=== PATIENT | female | born 2000 | race American Indian/Alaskan Native ===

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

== ENCOUNTER 2020-05-17 11:26 | Emergency (ER) | payer SELFPAY ==
[2020-05-17] MEDS ORDERED: niCARdipine DRIP 0 MG/0 ML BAG ONE (13:30)
--- NOTE | 2020-05-17 13:30 | Event Note ---
ED Screening Note Date of service: 05/17/20 Time: 13:28 ED Screening Note: 20-year-old female presents the ED complaining of lower pelvic pain with dysuria Denies vaginal discharge LMP, April 09, 2020 This initial assessment/diagnostic orders/clinical plan/treatment(s) is/are subject to change based on patients health status, clinical progression and re- assessment by fellow clinical providers in the ED. Further treatment and workup at subsequent clinical providers discretion. Patient/guardian urged not to elope from the ED as their condition may be serious if not clinically assessed and managed. Initial orders include: [email or web address]
[2020-05-17 15:42] LABS: Bacteria,Urine 1+ /HPF (Negative); Bilirubin,Urine NEG (Negative); Blood,Urine NEG (Negative); Color,Urine Yellow (Yellow); Mucus,Urine 3+ /HPF; Protein,Urine <15 mg/dL mg/dL (Negative); Urobilinogen,Urine < 2.0 mg/dL (<2.0)
[2020-05-17 15:44] LABS: HCG Qualitative,Urine Positive (Negative)
--- NOTE | 2020-05-17 16:11 | Emergency Department Report ---
ED General Adult HPI - General Chief complaint: Abdominal Pain Stated complaint: JAMAL AND STOMACH PAIN Time Seen by Provider: 05/17/20 14:27 Source: patient Mode of arrival: Ambulatory Limitations: No Limitations - History of Present Illness Initial comments: 20-year-old -[place] female patient presents with complaints of pelvic pain and right-sided back pain x 1 week. She also reports nausea, diarrhea, and painful urination. She denies any hematuria, vaginal discharge, dyspareunia, or vaginal bleeding. Patient does report that she had a positive test at home recently. She states her last menstrual cycle was 04/09/2020. Patient also denies any fever/chills/sweats or other chronic medical conditions. She reports no previous pregnancies. Patient also states that the right sided back pain is intermittent and denies it being current at this time. -: Gradual - Related Data Previous Rx's Medication Instructions Recorded Last Taken Type Sulfamethoxazole/Trimethoprim 1 each PO BID #6 tablet 12/15/18 Unknown Rx [Bactrim DS TAB] Amoxicillin/Potassium Clav 1 each PO BID 7 Days #14 tablet 05/17/20 Unknown Rx [Augmentin 875-125 Tablet] Allergies Allergy/AdvReac Type Severity Reaction Status Date / Time No Known Allergies Allergy Unverified 10/09/18 15:36 ED Review of Systems ROS: Stated complaint: JAMAL AND STOMACH PAIN Other details as noted in HPI Constitutional: denies: chills, diaphoresis, fever, malaise, weakness ENT: denies: throat pain Respiratory: denies: cough, shortness of breath Cardiovascular: denies: chest pain Endocrine: denies: excessive sweating Gastrointestinal: abdominal pain, nausea, diarrhea. denies: vomiting, constipation, hematemesis, melena, hematochezia Genitourinary: urgency, dysuria. denies: discharge, abnormal menses, dyspareunia Musculoskeletal: back pain Skin: denies: rash Neurological: denies: headache, numbness, paresthesias ED Past Medical Hx - Past Medical History Previous Medical History?: No - Surgical History Past Surgical History?: No - Social History Smoking Status: Current Every Day Smoker Substance Use Type: Alcohol - Medications Home Medications: Home Medications Medication Instructions Recorded Confirmed Last Taken Type Sulfamethoxazole/Trimethoprim 1 each PO BID #6 tablet 12/15/18 Unknown Rx [Bactrim DS TAB] Amoxicillin/Potassium Clav 1 each PO BID 7 Days #14 tablet 05/17/20 Unknown Rx [Augmentin 875-125 Tablet] ED Physical Exam - General Limitations: No Limitations General appearance: alert, in no apparent distress - Head Head exam: Present: atraumatic, normocephalic - Eye Eye exam: Present: normal appearance. Absent: scleral icterus - ENT ENT exam: Present: mucous membranes moist - Neck Neck exam: Present: normal inspection - Respiratory Respiratory exam: Present: normal lung sounds bilaterally. Absent: respiratory distress - Cardiovascular Cardiovascular Exam: Present: regular rate, normal rhythm. Absent: systolic murmur, diastolic murmur, rubs, gallop - GI/Abdominal GI/Abdominal exam: Present: soft, tenderness (Suprapubic), normal bowel sounds. Absent: distended, guarding, rebound, rigid - Extremities Exam Extremities exam: Present: normal inspection - Back Exam Back exam: Present: normal inspection. Absent: CVA tenderness (R), CVA tende rness (L), paraspinal tenderness, vertebral tenderness - Neurological Exam Neurological exam: Present: alert, oriented X3, normal gait - Psychiatric Psychiatric exam: Present: normal affect, normal mood - Skin Skin exam: Present: warm, dry, intact, normal color. Absent: rash ED Course Vital Signs 05/17/20 12:22 Temperature 98.2 F Pulse Rate 65 Respiratory 18 Rate Blood Pressure 124/73 O2 Sat by Pulse 100 Oximetry ED Medical Decision Making - Medical Decision Making Patient here with complaints of lower abdominal pain, dysuria, right flank pain, and nausea and diarrhea. She has suprapubic tenderness to palpation noted without right CVA tenderness noted. UA shows 51 WBCs. She denies any vaginal bleeding or discharge. It was recommended to patient that she had an OB ultrasound performed to rule out ectopic , patient declines and states that she she is unable to wait for her labs and test results. Discussed in detail risk associated with ectopic including , patient verbalized understanding. Prescription for Augmentin given. Patient also given a referral for [employer], Dr. Archuleta. Discussed signs and symptoms of ectopic , worsening UTI/pyelonephritis, and strict return precautions in great detail with patient who verbalized understanding. Her vitals are normal, she is well-appearing and stable for discharge home Critical care attestation.: If time is entered above; I have spent that time in minutes in the direct care of this critically ill patient, excluding procedure time. ED Disposition Clinical Impression: UTI in Qualifiers: Trimester: first trimester Qualified Code(s): O23.41 - Unspecified infection of urinary tract in , first trimester Qualifiers: Weeks of gestation: less than 8 weeks Qualified Code(s): Z3A.01 - Less than 8 weeks gestation of Disposition: - TO HOME OR SELFCARE Is pt being admited?: No Condition: Stable Instructions: Urinary Tract Infection in Women (ED) Prescriptions: Amoxicillin/Potassium Clav [Augmentin 875-125 Tablet] 1 each PO BID 7 Days #14 tablet Referrals: MICHAEL ARCHULETA MD [Staff Physician] - 2-3 Days
[2020-05-17 16:26] VITALS: BP 121/72
== END 2020-05-17 16:26 | disposition home or self-care (01) ==
LOC: ED 11:26
DX: O23.41 Unspecified infection of urinary tract in pregnancy, first trimester (principal); O99.331 Smoking (tobacco) complicating pregnancy, first trimester; Z79.899 Other long term (current) drug therapy; Z3A.01 Less than 8 weeks gestation of pregnancy
CPT/HCPCS: 81001; 81025; 87076; 87086; 87186; 99283

== ENCOUNTER 2020-11-27 11:35 | Emergency (ER) | payer MEDICAID ==
[2020-11-27 11:54] VITALS: BP 139/80
--- NOTE | 2020-11-27 12:21 | Emergency Department Report ---
ED Female HPI - General Chief complaint: Abdominal Pain Stated complaint: ABDOMINAL AND VAGINAL PAIN Time Seen by Provider: 11/27/20 12:11 Source: patient Mode of arrival: Ambulatory Limitations: No Limitations - History of Present Illness Initial comments: 20-year-old -[place] female presents to the emergency room states that she took " take action" Plan B [id number] pill. Patient comes in complaining of vaginal pain and bleeding. Patient states that she is requesting an STD check. She denies any vaginal discharge. Onset/Timin -: days(s) Location: perineum Severity scale (0 -10): 4 Improves with: none Worsens with: none Are you Now?: No Last Menstrual Period: 11/26/20 EDC: 09/02/21 Associated Symptoms: vaginal bleeding. denies: nausea/vomiting, fever/chills, hematuria - Related Data Sexually active: Yes Previous Rx's Medication Instructions Recorded Last Taken Type Sulfamethoxazole/Trimethoprim 1 each PO BID #6 tablet 12/15/18 Unknown Rx [Bactrim DS TAB] Amoxicillin/Potassium Clav 1 each PO BID 7 Days #14 tablet 05/17/20 Unknown Rx [Augmentin 875-125 Tablet] Nitrofurantoin [place]/M-Cryst 100 mg PO Q12HR 10 Days #20 capsule 11/27/20 Unknown Rx [Macrobid CAP] Allergies Allergy/AdvReac Type Severity Reaction Status Date / Time No Known Allergies Allergy Unverified 10/09/18 15:36 ED Review of Systems ROS: Stated complaint: ABDOMINAL AND VAGINAL PAIN Other details as noted in HPI Comment: All other systems reviewed and negative ED Past Medical Hx - Past Medical History Previous Medical History?: No - Surgical History Past Surgical History?: No - Social History Smoking Status: Current Every Day Smoker Substance Use Type: Alcohol - Medications Home Medications: Home Medications Medication Instructions Recorded Confirmed Last Taken Type Sulfamethoxazole/Trimethoprim 1 each PO BID #6 tablet 12/15/18 Unknown Rx [Bactrim DS TAB] Amoxicillin/Potassium Clav 1 each PO BID 7 Days #14 tablet 05/17/20 Unknown Rx [Augmentin 875-125 Tablet] Nitrofurantoin [place]/M-Cryst 100 mg PO Q12HR 10 Days #20 capsule 11/27/20 Unkno wn Rx [Macrobid CAP] ED Physical Exam - General Limitations: No Limitations General appearance: alert, in no apparent distress - Head Head exam: Present: atraumatic, normocephalic - Eye Eye exam: Present: normal appearance - ENT ENT exam: Present: mucous membranes moist - Neck Neck exam: Present: normal inspection - Respiratory Respiratory exam: Present: normal lung sounds bilaterally. Absent: respiratory distress - Cardiovascular Cardiovascular Exam: Present: regular rate, normal rhythm. Absent: systolic murmur, diastolic murmur, rubs, gallop - GI/Abdominal GI/Abdominal exam: Present: soft, normal bowel sounds - Extremities Exam Extremities exam: Present: normal inspection - Back Exam Back exam: Present: normal inspection - Neurological Exam Neurological exam: Present: alert, oriented X3 - Psychiatric Psychiatric exam: Present: normal affect, normal mood - Skin Skin exam: Present: warm, dry, intact, normal color. Absent: rash ED Course Vital Signs 11/27/20 11:53 Temperature 98.4 F Pulse Rate 84 Respiratory 16 Rate Blood Pressure 139/80 [Right] O2 Sat by Pulse 98 Oximetry ED Medical Decision Making - Lab Data Laboratory Tests 11/27/20 12:50 Urine Color Yellow Urine Turbidity Slightly-cloudy Urine pH 6.0 Ur Specific Gregory 1.019 Urine Protein <15 mg/dl Urine Glucose (UA) Neg Urine Ketones Neg Urine Blood Lg Urine Nitrite Pos Urine Bilirubin Neg Urine Urobilinogen < 2.0 Ur Leukocyte Esterase Tr Urine WBC (Auto) 18.0 H Urine RBC (Auto) 122.0 U Epithel Cells (Auto) 4.0 Urine Mucus 1+ Urine HCG, Qual Negative Critical care attestation.: If time is entered above; I have spent that time in minutes in the direct care of this critically ill patient, excluding procedure time. ED Disposition Clinical Impression: UTI (urinary tract infection), Dysmenorrhea Disposition: DC- TO HOME OR SELFCARE Is pt being admited?: No Does the pt Need Aspirin: No Condition: Stable Instructions: Abdominal Pain (ED), Urinary Tract Infection, Adult, [id number], Levonorgestrel emergency contraceptive kit Additional Instructions: Urine test is negative. Urinalysis shows that you have a urinary tract infection. Please complete your antibiotics. Increase your fluid intake. Recommend to follow-up at the health department for full STD panel. I have listed the information below. You can also follow-up with your INSURANCE COUNSEL as well. Prescriptions: Nitrofurantoin [place]/M-Cryst [Macrobid CAP] 100 mg PO Q12HR 10 Days #20 capsule Referrals: PRIMARY CARE, [Primary Care Provider] - 3-5 Days [facility] [Outside] - 3-5 Days Forms: Work/School Release Form(ED)
[2020-11-27 13:05] LABS: Bilirubin,Urine NEG (Negative); Blood,Urine LG (Negative); Color,Urine Yellow (Yellow); Mucus,Urine 1+ /HPF; Protein,Urine <15 mg/dL mg/dL (Negative); Urobilinogen,Urine < 2.0 mg/dL (<2.0)
[2020-11-27 13:06] LABS: HCG Qualitative,Urine Negative (Negative)
== END 2020-11-27 16:39 | disposition home or self-care (01) ==
LOC: ED 11:35
DX: N39.0 Urinary tract infection, site not specified (principal); N94.6 Dysmenorrhea, unspecified; F17.200 Nicotine dependence, unspecified, uncomplicated; Z79.899 Other long term (current) drug therapy
CPT/HCPCS: 81001; 81025; 87086; 99283

== ENCOUNTER 2021-03-02 00:25 | Observation (INO) | payer SELFPAY ==
[2021-03-02 01:02] LABS: Basophils % (Auto) 0.3 % (0.0-1.8); Eosinophils % (Auto) 0.4 % (0.0-4.3); Hematocrit 28.1 % (30.3-42.9); Lymphocytes # (Auto) 1.7 K/mm3 (1.2-5.4); Lymphocytes % (Auto) 19.6 % (13.4-35.0); Mean Corpuscular HGB Conc 32 % (30-34); Monocytes # (Auto) 0.8 K/mm3 (0.0-0.8); Monocytes % (Auto) 9.6 % (0.0-7.3); Platelet Count 340 K/mm3 (140-440); Red Blood Count 4.31 M/mm3 (3.65-5.03)
[2021-03-02 01:11] LABS: Mean Corpuscular Volume 65 fl (79-97); Red Cell Distribution Width 20.5 % (13.2-15.2)
[2021-03-02 01:25] LABS: Alanine Aminotransferase 13 units/L (7-56); Albumin 4.5 g/dL (3.9-5); Blood Urea Nitrogen 13 mg/dL (7-17); Calcium 9.2 mg/dL (8.4-10.2); Hemolysis Index 2
[2021-03-02 01:46] LABS: BUN/Creatinine Ratio 19
[2021-03-02 01:51] LABS: Bacteria,Urine 1+ /HPF (Negative); Bilirubin,Urine NEG (Negative); Blood,Urine SM (Negative); Color,Urine Yellow (Yellow); Mucus,Urine 3+ /HPF
[2021-03-02] MEDS ORDERED: SODIUM CHLORIDE 0.9% 1000 ML 1,000 ML IV ONE (02:24)
[2021-03-02] MEDS ORDERED: ONDANSETRON 4 MG/2 ML INJ IV ONE (02:24)
[2021-03-02] MEDS ORDERED: MORPHINE 4 MG/1 ML INJ IV ONE (02:24)
[2021-03-02] MEDS ORDERED: ACETAMINOPHEN 325 MG TAB PO ONE (02:55)
[2021-03-02] MEDS ORDERED: PIPERACIL/TAZOBACTA 4.5/NS 100 4.5 GM/100 ML VIAL IV ONE (03:44)
[2021-03-02] MEDS ORDERED: ACETAMINOPHEN 325 MG TAB PO PRN ×2 (04:56→04:58)
[2021-03-02] MEDS: ONDANSETRON 4 MG/2 ML INJ IV PRN (08:37)
[2021-03-02] MEDS: D5W/0.9% NACL 1,000 ML IV SCH ×2 (09:46→21:28)
[2021-03-02] MEDS: PIPERACIL/TAZOBACTA 4.5/NS 100 4.5 GM/100 ML VIAL IV SCH ×2 (11:30→21:21)
[2021-03-03] MEDS: PIPERACIL/TAZOBACTA 4.5/NS 100 4.5 GM/100 ML VIAL IV SCH ×4 (04:13→21:37)
[2021-03-03 05:29] LABS: Basophils % (Auto) 0.4 % (0.0-1.8); Eosinophils # (Auto) 0.1 K/mm3 (0.0-0.4); Hematocrit 26.9 % (30.3-42.9); Hemoglobin 8.6 gm/dl (10.1-14.3); Lymphocytes # (Auto) 1.7 K/mm3 (1.2-5.4); Mean Corpuscular HGB Conc 32 % (30-34); Monocytes # (Auto) 0.8 K/mm3 (0.0-0.8); Platelet Count 313 K/mm3 (140-440); Red Blood Count 4.11 M/mm3 (3.65-5.03)
[2021-03-03 05:33] LABS: Mean Corpuscular Volume 65 fl (79-97); Red Cell Distribution Width 21.2 % (13.2-15.2)
[2021-03-03 05:54] LABS: Iron 11 ug/dL (37-170); Total Iron Binding Capacity 379 mcg/dL (250-450)
[2021-03-03] MEDS: FERROUS SULFATE 325 MG TAB PO SCH ×2 (12:00→21:38)
[2021-03-03] MEDS: ONDANSETRON 4 MG/2 ML INJ IV PRN (14:17)
[2021-03-03] MEDS: HYDROmorphone 1 MG/1 ML INJ IV PRN (14:20)
[2021-03-03] MEDS: D5W/0.9% NACL 1,000 ML IV SCH (21:36)
[2021-03-04] MEDS: HYDROmorphone 1 MG/1 ML INJ IV PRN (00:35)
[2021-03-04] MEDS: PIPERACIL/TAZOBACTA 4.5/NS 100 4.5 GM/100 ML VIAL IV SCH (05:49)
[2021-03-04 08:18] VITALS: BP 104/46
== END 2021-03-04 12:15 | disposition home or self-care (01) ==
LOC: ED 00:25 → 3B-SURG 04:56 → INTOOBSV 04:56
PROVIDERS: ADMIT Hospitalist; ATTEND Internal Medicine
DX: K35.80 Unspecified acute appendicitis (principal); N39.0 Urinary tract infection, site not specified; D50.9 Iron deficiency anemia, unspecified; K52.9 Noninfective gastroenteritis and colitis, unspecified; R50.9 Fever, unspecified; F17.210 Nicotine dependence, cigarettes, uncomplicated
CPT/HCPCS: 36415; 74176; 74177; 80053; 81001; 82728; 83550; 83690; 84703; 85025; 86850; 86870; 86900; 86901; 86922; 87086; 96361; 96365; 96366; 96375; 96376; 99285; G0378; J1170; J2270; J2405; J2543; J7030; J7042; Q9967

== ENCOUNTER 2021-04-05 21:20 | Emergency (ER) | payer SELFPAY ==
[2021-04-05 22:18] VITALS: BP 134/84
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
== END 2021-04-05 23:55 | disposition home or self-care (01) ==
LOC: ED 21:20
DX: R68.84 Jaw pain (principal); F17.200 Nicotine dependence, unspecified, uncomplicated; F12.90 Cannabis use, unspecified, uncomplicated; Z79.899 Other long term (current) drug therapy; V49.59XA Passenger injured in collision with other motor vehicles in traffic accident, initial encounter; Y92.410 Unspecified street and highway as the place of occurrence of the external cause; Y93.89 Activity, other specified; Y99.8 Other external cause status
CPT/HCPCS: 99282

== ENCOUNTER 2021-08-28 13:11 | Emergency (ER) | payer SELFPAY ==
[2021-08-28 13:20] VITALS: BP 147/87
[2021-08-28] MEDS ORDERED: SODIUM CHLORIDE 0.9% 1000 ML 1,000 ML IV ONE (13:32)
[2021-08-28] MEDS ORDERED: ONDANSETRON 4 MG/2 ML INJ IV ONE (13:32)
--- NOTE | 2021-08-28 13:32 | Emergency Department Report ---
ED General Adult HPI - General Chief complaint: Nausea/Vomiting/Diarrhea Stated complaint: ABDOMINAL PAIN Time Seen by Provider: 08/28/21 13:22 Source: patient Mode of arrival: Ambulatory Limitations: No Limitations - History of Present Illness Initial comments: Is a pleasant 21-year-old A1 L0 female presents the emergency department with chief complaint of nausea, vomiting, lower abdominal pain and fatigue. Patient reports had a positive test at home but is unsure how far along she is. She also reports 2 weeks ago she went to donate plasma and was told her iron levels were low. She has a history of iron deficiency anemia and usually takes oral iron but states she has not been taking it for the past few months. She denies associated fever, chills, night sweats, headache, dizziness, or vision, chest pain or shortness of breath, hematemesis, melena, hematochezia, vaginal bleeding, loss of fluid or any other associated symptoms. - Related Data Previous Rx's Medication Instructions Recorded Last Taken Type Sulfamethoxazole/Trimethoprim 1 each PO BID #6 tablet 12/15/18 Unknown Rx [Bactrim DS TAB] Nitrofurantoin [place]/M-Cryst 100 mg PO Q12HR 10 Days #20 capsule 11/27/20 Unknown Rx [Macrobid CAP] Amoxicillin/Potassium Clav 1 each PO BID 5 Days #14 tablet 03/04/21 Unknown Rx [Augmentin 875-125 Tablet] Naproxen 500 mg PO BID #20 tablet 04/05/21 Unknown Rx Ferrous Sulfate [Ferrous Sulfate 324 mg PO DAILY #30 tablet. 08/28/21 Unknown Rx 324 MG] Vit-Fe Fumar-FA [ 1 tab PO QDAY #30 tablet 08/28/21 Unknown Rx Vitamin] Promethazine [Phenergan] 25 mg PO Q6HR PRN #40 tab 08/28/21 Unknown Rx Allergies Allergy/AdvReac Type Severity Reaction Status Date / Time No Known Allergies Allergy Verified 03/02/21 14:48 ED Review of Systems ROS: Stated complaint: ABDOMINAL PAIN Other details as noted in HPI Comment: All other systems reviewed and negative Constitutional: malaise. denies: chills, fever Eyes: denies: eye pain, eye discharge, vision change ENT: denies: ear pain, throat pain Respiratory: denies: cough, shortness of breath, wheezing Cardiovascular: denies: chest pain, palpitations Endocrine: no symptoms reported Gastrointestinal: abdominal pain, nausea, vomiting. denies: diarrhea Genitourinary: denies: urgency, dysuria, discharge Musculoskeletal: denies: back pain, joint swelling, arthralgia Skin: denies: rash, lesions Neurological: denies: headache, weakness, paresthesias Psychiatric: denies: anxiety, depression Hematological/Lymphatic: denies: easy bleeding, easy bruising ED Past Medical Hx - Past Medical History Previous Medical History?: Yes Hx Hypertension: No Hx Heart Attack/AMI: No Hx Congestive Heart Failure: No Hx Diabetes: No Hx Deep Vein Thrombosis: No Hx Pulmonary Embolism: No Hx Liver Disease: No Hx Renal Disease: No Hx Sickle Cell Disease: No Hx Arthritis: No Hx Kidney Stones: No Hx Asthma: No Hx COPD: No Hx Tuberculosis: No Hx HIV: No Additional medical history: Low iron - Surgical History Past Surgical History?: No Hx Coronary Stent: No Hx Open Heart Surgery: No Hx Pacemaker: No Hx Internal Defibrillator: No Hx Cholecystectomy: No Hx Appendectomy: No - Social History Smoking Status: Current Every Day Smoker Substance Use Type: Marijuana - Medications Home Medications: Home Medications Medication Instructions Recorded Confirmed Last Taken Type Sulfamethoxazole/Trimethoprim 1 each PO BID #6 tablet 12/15/18 03/02/21 Unknown Rx [Bactrim DS TAB] Nitrofurantoin [place]/M-Cryst 100 mg PO Q12HR 10 Days #20 capsule 11/27/20 03/02/21 Unknown Rx [Macrobid CAP] Amoxicillin/Potassium Clav 1 each PO BID 5 Days #14 tablet 03/04/21 Unknown Rx [Augmentin 875-125 Tablet] Naproxen 500 mg PO BID #20 tablet 04/05/21 Unknown Rx Ferrous Sulfate [Ferrous Sulfate 324 mg PO DAILY #30 tablet. 08/28/21 Unknown Rx 324 MG] Vit-Fe Fumar-FA [ 1 tab PO QDAY #30 tablet 08/28/21 Unknown Rx Vitamin] Promethazine [Phenergan] 25 mg PO Q6HR PRN #40 tab 08/28/21 Unknown Rx ED Physical Exam - General Limitations: No Limitations General appearance: alert, in no apparent distress - Head Head exam: Present: atraumatic, normocephalic - Eye Eye exam: Present: normal appearance, PERRL, EOMI Pupils: Present: normal accommodation - ENT ENT exam: Present: normal exam, normal orophraynx, mucous membranes moist - Neck Neck exam: Present: normal inspection, full ROM. Absent: tenderness, meningismus - Respiratory Respiratory exam: Present: normal lung sounds bilaterally. Absent: respiratory distress, wheezes, rales, rhonchi, stridor - Cardiovascular Cardiovascular Exam: Present: regular rate, normal rhythm, normal heart sounds. Absent: systolic murmur, diastolic murmur, rubs, gallop - GI/Abdominal GI/Abdominal exam: Present: soft, tenderness (Mild tenderness across lower abdomen, no rebound or guarding, negative [place]'s point tenderness, negative rebound tenderness.), normal bowel sounds. Absent: distended, guarding, rebound, rigid - Extremities Exam Extremities exam: Present: normal inspection, full ROM, normal capillary refill. Absent: tenderness, calf tenderness - Back Exam Back exam: Present: normal inspection, full ROM. Absent: tenderness, CVA tenderness (R), CVA tenderness (L) - Neurological Exam Neurological exam: Present: alert, oriented X3, normal gait - Psychiatric Psychiatric exam: Present: normal affect, normal mood - Skin Skin exam: Present: warm, dry, intact, normal color. Absent: rash ED Course Vital Signs 08/28/21 13:19 Temperature 98.7 F Pulse Rate 124 H Respiratory 16 Rate Blood Pressure 147/87 [Right] O2 Sat by Pulse 98 Oximetry ED Medical Decision Making - Lab Data Result diagrams: 08/28/21 14:12 08/28/21 14:12 Lab Results 08/28/21 08/28/21 08/28/21 Range/Units 14:12 14:12 14:12 WBC 7.8 (4.5-11.0) K/mm3 RBC 4.27 (3.65-5.03) M/mm3 Hgb 9.0 L (10.1-14.3) gm/dl Hct 28.2 L (30.3-42.9) % MCV 66 L (79-97) fl MCH 21 L (28-32) pg MCHC 32 (30-34) % RDW 22.0 H (13.2-15.2) % Plt Count 455 H (140-440) K/mm3 Lymph % (Auto) 31.4 (13.4-35.0) % [place] % (Auto) 8.3 H (0.0-7.3) % Eos % (Auto) 2.2 (0.0-4.3) % Baso % (Auto) 0.3 (0.0-1.8) % Lymph # (Auto) 2.5 (1.2-5.4) K/mm3 [place] # (Auto) 0.6 (0.0-0.8) K/mm3 Eos # (Auto) 0.2 (0.0-0.4) K/mm3 Baso # (Auto) 0.0 (0.0-0.1) K/mm3 Seg Neutrophils % 57.8 (40.0-70.0) % Seg Neutrophils # 4.5 (1.8-7.7) K/mm3 Sodium 132 L (137-145) mmol/L Potassium 3.8 (3.6-5.0) mmol/L Chloride 99.4 (98-107) mmol/L Carbon Dioxide 18 L (22-30) mmol/L Anion Gap 18 mmol/L BUN 11 (7-17) mg/dL Creatinine 0.5 L (0.6-1.2) mg/dL Estimated GFR > 60 ml/min BUN/Creatinine Ratio 22 % Glucose 79 (65-100) mg/dL Calcium 8.6 (8.4-10.2) mg/dL Total Bilirubin 0.30 (0.1-1.2) mg/dL AST 19 (5-40) units/L ALT 10 (7-56) units/L Alkaline Phosphatase 58 (35-129) units/L Total Protein 7.6 (6.3-8.2) g/dL Albumin 4.0 (3.9-5) g/dL Albumin/Globulin Ratio 1.1 % HCG, Qual Positive (Negative) HCG, Quant (0-4) mIU/mL 08/28/21 Range/Units 14:12 WBC (4.5-11.0) K/mm3 RBC (3.65-5.03) M/mm3 Hgb (10.1-14.3) gm/dl Hct (30.3-42.9) % MCV (79-97) fl MCH (28-32) pg MCHC (30-34) % RDW (13.2-15.2) % Plt Count (140-440) K/mm3 Lymph % (Auto) (13.4-35.0) % [place] % (Auto) (0.0-7.3) % Eos % (Auto) (0.0-4.3) % Baso % (Auto) (0.0-1.8) % Lymph # (Auto) (1.2-5.4) K/mm3 [place] # (Auto) (0.0-0.8) K/mm3 Eos # (Auto) (0.0-0.4) K/mm3 Baso # (Auto) (0.0-0.1) K/mm3 Seg Neutrophils % (40.0-70.0) % Seg Neutrophils # (1.8-7.7) K/mm3 Sodium (137-145) mmol/L Potassium (3.6-5.0) mmol/L Chloride (98-107) mmol/L Carbon Dioxide (22-30) mmol/L Anion Gap mmol/L BUN (7-17) mg/dL Creatinine (0.6-1.2) mg/dL Estimated GFR ml/min BUN/Creatinine Ratio % Glucose (65-100) mg/dL Calcium (8.4-10.2) mg/dL Total Bilirubin (0.1-1.2) mg/dL AST (5-40) units/L ALT (7-56) units/L Alkaline Phosphatase (35-129) units/L Total Protein (6.3-8.2) g/dL Albumin (3.9-5) g/dL Albumin/Globulin Ratio % HCG, Qual (Negative) HCG, Quant 9463 H (0-4) mIU/mL - Radiology Data Radiology results: report reviewed, image reviewed ULTRASOUND OBSTETRIC INDICATION / CLINICAL INFORMATION: abdominal pain, + urine test. Clinical Gestational Age (GA) in weeks, days: 10, 4 TECHNIQUE: Transabdominal and Transvaginal. COMPARISON: None available. FINDINGS: GESTATIONAL SAC: Well-defined oval shape and intrauterine in location. Mean sac diameter is 11 mm corresponding to 5, 6 weeks, days. YOLK SAC: No significant abnormality. EMBRYO/FETUS: Not visualized. ADNEXA: Left ovarian corpus luteum cyst. FREE FLUID: None. ADDITIONAL FINDINGS: None. IMPRESSION: 1. Intrauterine gestational sac with yolk sac but no definite pole with estimated sonographic age of 5, 6 weeks, days. Short-term clinical and laboratory follow-up is recommended. Signer Name: Ander Hinojosa MD Signed: 08/28/2021 5:04 PM - Medical Decision Making ULTRASOUND OBSTETRIC INDICATION / CLINICAL INFORMATION: abdominal pain, + urine test. Clinical Gestational Age (GA) in weeks, days: 10, 4 TECHNIQUE: Transabdominal and Transvaginal. COMPARISON: None available. FINDINGS: GESTATIONAL SAC: Well-defined oval shape and intrauterine in location. Mean sac diameter is 11 mm corresponding to 5, 6 weeks, days. YOLK SAC: No significant abnormality. EMBRYO/FETUS: Not visualized. ADNEXA: Left ovarian corpus luteum cyst. FREE FLUID: None. ADDITIONAL FINDINGS: None. IMPRESSION: 1. Intrauterine gestational sac with yolk sac but no definite pole with estimated sonographic age of 5, 6 weeks, days. Short-term clinical and laboratory follow-up is recommended. Signer Name: Ander Hinojosa MD Signed: 08/28/2021 5:04 PM - Differential Diagnosis Early intrauterine , dehydration, hyperemesis gravidarum Critical care attestation.: If time is entered above; I have spent that time in minutes in the direct care of this critically ill patient, excluding procedure time. ED Disposition Clinical Impression: Intrauterine , Hyperemesis gravidarum Disposition: 01 HOME / SELF CARE / HOMELESS Is pt being admited?: No Condition: Stable Instructions: Morning Sickness Prescriptions: Ferrous Sulfate [Ferrous Sulfate 324 MG] 324 mg PO DAILY #30 tablet. Promethazine [Phenergan] 25 mg PO Q6HR PRN #40 tab PRN Reason: Nausea Vit-Fe Fumar-FA [ Vitamin] 1 tab PO QDAY #30 tablet Referrals: PRIMARY CARE, [Primary Care Provider] - 3-5 Days [facility] [Provider Group] - 3-5 Days Forms: Work/School Release Form(ED) Time of Disposition: 17:28
[2021-08-28 14:35] LABS: Basophils % (Auto) 0.3 % (0.0-1.8); Eosinophils # (Auto) 0.2 K/mm3 (0.0-0.4); Eosinophils % (Auto) 2.2 % (0.0-4.3); Hematocrit 28.2 % (30.3-42.9); Lymphocytes # (Auto) 2.5 K/mm3 (1.2-5.4); Lymphocytes % (Auto) 31.4 % (13.4-35.0); Mean Corpuscular HGB Conc 32 % (30-34); Monocytes # (Auto) 0.6 K/mm3 (0.0-0.8); Monocytes % (Auto) 8.3 % (0.0-7.3); Platelet Count 455 K/mm3 (140-440); Red Blood Count 4.27 M/mm3 (3.65-5.03)
[2021-08-28 14:36] LABS: Mean Corpuscular Volume 66 fl (79-97)
[2021-08-28 14:54] LABS: Alanine Aminotransferase 10 units/L (7-56); Blood Urea Nitrogen 11 mg/dL (7-17); Calcium 8.6 mg/dL (8.4-10.2); Hemolysis Index 3
[2021-08-28 14:56] LABS: BUN/Creatinine Ratio 22
--- NOTE | 2021-08-28 17:09 | Ultrasound Report ---
ULTRASOUND OBSTETRIC INDICATION / CLINICAL INFORMATION: abdominal pain, + urine test. Clinical Gestational Age (GA) in weeks, days: 10, 4 TECHNIQUE: Transabdominal and Transvaginal. COMPARISON: None available. FINDINGS: GESTATIONAL SAC: Well-defined oval shape and intrauterine in location. Mean sac diameter is 11 mm cor responding to 5, 6 weeks, days. YOLK SAC: No significant abnormality. EMBRYO/FETUS: Not visualized. ADNEXA: Left ovarian corpus luteum cyst. FREE FLUID: None. ADDITIONAL FINDINGS: None. IMPRESSION: 1. Intrauterine gestational sac with yolk sac but no definite pole with estimated sonographic a ge of 5, 6 weeks, days. Short-term clinical and laboratory follow-up is recommended. Signer Name: Ander Hinojosa MD Signed: 08/28/2021 5:04 PM Workstation Name: [id number]
[2021-08-28 18:04] LABS: Bilirubin,Urine NEG (Negative); Blood,Urine NEG (Negative); Color,Urine Yellow (Yellow); Mucus,Urine 2+ /HPF; Protein,Urine <15 mg/dL mg/dL (Negative); Urobilinogen,Urine < 2.0 mg/dL (<2.0)
== END 2021-08-28 17:53 | disposition home or self-care (01) ==
LOC: ED 13:11
DX: O21.0 Mild hyperemesis gravidarum (principal); O00.01 Abdominal pregnancy with intrauterine pregnancy; Z3A.01 Less than 8 weeks gestation of pregnancy; Z79.899 Other long term (current) drug therapy
CPT/HCPCS: 36415; 76801; 76817; 80053; 81001; 84702; 84703; 85025; 96361; 96374; 99284; J2405; J7030; Q0162